=== PATIENT | male | born 1970 | race American Indian/Alaskan Native ===

== ENCOUNTER 2017-05-03 15:47 | Inpatient (IN) | payer OTHER ==
[2017-05-03 16:24] LABS: Basophils % (Auto) 0.1 % (0.0-1.8); Eosinophils # (Auto) 0.1 K/mm3 (0.0-0.4); Eosinophils % (Auto) 0.7 % (0.0-4.3); Hematocrit 44.2 % (35.5-45.6); Hemoglobin 14.5 gm/dl (11.8-15.2); Lymphocytes # (Auto) 1.3 K/mm3 (1.2-5.4); Lymphocytes % (Auto) 11.2 % (13.4-35.0); Mean Corpuscular HGB Conc 33 % (32-34); Mean Corpuscular Hemoglobin 29 pg (28-32); Mean Corpuscular Volume 89 fl (84-94); Monocytes # (Auto) 1.2 K/mm3 (0.0-0.8); Monocytes % (Auto) 10.5 % (0.0-7.3); Platelet Count 136 K/mm3 (140-440); Red Blood Count 4.96 M/mm3 (3.65-5.03)
[2017-05-03 16:39] LABS: BUN/Creatinine Ratio 28; Blood Urea Nitrogen 14 mg/dL (9-20); Calcium 8.8 mg/dL (8.4-10.2); Hemolysis Index 4
[2017-05-03] MEDS ORDERED: MORPHINE IV ONE (17:42)
[2017-05-03] MEDS ORDERED: ZOFRAN IV ONE (17:42)
--- NOTE | 2017-05-03 17:48 | Emergency Department Report ---
HPI - General Chief Complaint: Extremity Injury, Lower Time Seen by Provider: 05/03/17 17:33 - HPI HPI: Room 23 The patient is a 46-year-old male presenting with a chief complaint of right foot pain and swelling. The patient states yesterday he noticed swelling of the right. Patient states swelling and redness has increased. The patient states he went to urgent care facility today for evaluation and was sent here for cellulitis and concern for an "irregular" heart rate. Patient denies chest pain or shortness of breath. Patient denies any recent flights or long car trips. Of note the patient states in November 2016 he was diagnosed with cellulitis in the right huang. Patient admits to subjective fever yesterday. The patient gives his pain a score of 8-9/10 Location: Right foot Duration: 2 days Quality: Pain Severity: 8-9/10 Modifying factors: [see above] Context: [see above] Mode of transportation: [not driving] ED Past Medical Hx - Past Medical History Previous Medical History?: No - Surgical History Past Surgical History?: No - Family History Family history: no significant - Social History Smoking Status: Current Every Day Smoker (1/7 pack per day) Substance Use Type: Marijuana - Medications Home Medications: Home Medications Medication Instructions Recorded Confirmed Last Taken Type No Known Home Medications [No 05/03/17 05/03/17 Unknown History Reported Home Medications] ED Review of Systems ROS: Stated complaint: SENT BY URGENT CARE Other details as noted in HPI Constitutional: fever Musculoskeletal: myalgia Skin: lesions Physical Exam - Physical Exam Vital Signs: Vital Signs 05/03/17 16:00 Temperature 99.0 F Pulse Rate 107 H Respiratory 18 Rate Blood Pressure 137/86 O2 Sat by Pulse 97 Oximetry Physical Exam: GENERAL: The patient is well-developed well-nourished male lying on stretcher not appearing to be in acute distress. [] HEENT: Normocephalic. Atraumatic. Extraocular motions are intact. Patient has moist mucous membranes. NECK: Supple. Trachea midline CHEST/LUNGS: Clear to auscultation. There is no respiratory distress noted. HEART/CARDIOVASCULAR: Regular. There is no tachycardia. There is no gallop rub or murmur. ABDOMEN: Abdomen is soft, nontender. Patient has normal bowel sounds. There is no abdominal distention. SKIN: There is no rash. There is 1-2+ lower extremity pitting edema. There is no diaphoresis. There is marked erythema/cellulitis over the dorsum of the right foot and anterior and lateral right huang. There is increased warmth of the right lower extremity. There is cracked skin between the second and third digits of the right foot which appear to be due to portal of entry for cellulitis NEURO: The patient is awake, alert, and oriented. The patient is cooperative. The patient has normal speech MUSCULOSKELETAL: There is no calf tenderness. ED Course Vital Signs 05/03/17 16:00 Temperature 99.0 F Pulse Rate 107 H Respiratory 18 Rate Blood Pressure 137/86 O2 Sat by Pulse 97 Oximetry ED Medical Decision Making - Lab Data Result diagrams: 05/03/17 16:15 05/03/17 16:15 Laboratory Tests 05/03/17 05/03/17 16:15 16:15 WBC 11.8 H RBC 4.96 Hgb 14.5 Hct 44.2 MCV 89 MCH 29 MCHC 33 RDW 14.0 Plt Count 136 L Lymph % (Auto) 11.2 L [place] % (Auto) 10.5 H Eos % (Auto) 0.7 Baso % (Auto) 0.1 Lymph # 1.3 [place] # 1.2 H Eos # 0.1 Baso # 0.0 Seg Neutrophils % 77.5 H Seg Neutrophils # 9.1 H Sodium 138 Potassium 3.6 Chloride 98.2 Carbon Dioxide 29 Anion Gap 14 BUN 14 Creatinine 0.5 L Estimated GFR > 60 BUN/Creatinine Ratio 28 Glucose 134 H Calcium 8.8 - Radiology Data Radiology results: image reviewed (right foot x-ray) interpreted by me: Right foot x-ray-no foreign body, no fracture - Differential Diagnosis cellulitis Critical care attestation.: If time is entered above; I have spent that time in minutes in the direct care of this critically ill patient, excluding procedure time. ED Disposition Clinical Impression: Cellulitis of right foot Disposition: [id number] OP ADMIT IP TO THIS HOSP Is pt being admited?: Yes Does the pt Need Aspirin: No Condition: Fair Time of Disposition: 18:44 (hospitalist notified)
[2017-05-03] MEDS ORDERED: ZOSYN/NS 4.5GM/100ML 4.5 GM/100 ML VIAL IV SCH (18:30)
--- NOTE | 2017-05-03 18:33 | History and Physical Report ---
History of Present Illness Chief complaint: My foot hurts History of present illness: 46 YO Male with Nicotine Dependence presents to ED for evaluation. Pt states that he has experienced pain, redness and swelling in his right foot over the past 2 days with worsening symptoms over the past 12 hours. Pain is currently 8/ 10, localized to the right foot, nonradiating, Pt states that he went to urgent care facility today for evaluation and was found to have cellulitis and concern for an "irregular" heart rate. Pt seen and evaluated in ED and found to have cellulitis to the RLE. Patient denies fever, chills, CP, Palpitations, NVD, Syncope, prolonged travel/immobility, individual/family history of DVT/PE, shortness of breath, trauma, chest pain with deep breathing, or recent ill contacts. Past History Past Medical History: No medical history Past Surgical History: No surgical history Social history: single, smoking Family history: hypertension Medications and Allergies Allergies Allergy/AdvReac Type Severity Reaction Status Date / Time No Known Allergies Allergy Unverified 05/03/17 16:02 Home Medications Medication Instructions Recorded Confirmed Last Taken Type No Known Home Medications [No 05/03/17 05/03/17 Unknown History Reported Home Medications] Active Meds: Active Medications Vancomycin HCl (Vancomycin/0.45 Ns 1 Gm/250 Ml) 1 gm in 250 mls @ 167.007 mls/ hr IV ONCE REAGAN PRN Reason: Protocol Stop: 05/03/17 23:00 Piperacillin Sod/Tazobactam Sod (Zosyn/Ns 4.5gm/100ml) 4.5 gm in 100 mls @ 200 mls/hr IV ONCE REAGAN Stop: 05/03/17 23:00 Review of Systems Constitutional: no weight loss, no weight gain, no fever Ears, nose, mouth and throat: no ear pain, no ear discharge, no tinnitis, no decreased hearing, no nose pain, no nasal congestion Cardiovascular: no chest pain, no orthopnea, no palpitations, no rapid/ irregular heart beat, no edema, no syncope, no lightheadedness, no shortness of breath Respiratory: no cough, no cough with sputum, no excessive sputum, no hemoptysis , no shortness of breath, no dyspnea on exertion Gastrointestinal: no abdominal pain, no nausea, no vomiting, no diarrhea, no constipation, no change in bowel habits, no hematemesis Genitourinary Male: no hematuria, no flank pain, no discharge, no urinary frequency, no urinary hesitancy Rectal: no pain, no incontinence, no bleeding Musculoskeletal: other (right foot swelling, redness), no neck stiffness, no neck pain, no shooting arm pain, no arm numbness/tingling, no low back pain, no shooting leg pain, no leg numbness/tingling Integumentary: no rash, no pruritis, no redness, no sores, no wounds, no jaundice Neurological: no transient paralysis, no paralysis, no weakness, no parathesias , no numbness, no tingling, no seizures Psychiatric: no anxiety, no memory loss, no change in sleep habits, no sleep disturbances, no insomnia, no hypersomnia, no change in appetite Endocrine: no cold intolerance, no heat intolerance, no polyphagia, no excessive thirst, no polydipsia, no polyuria, no nocturia Hematologic/Lymphatic: no easy bruising, no easy bleeding, no lymphadenopathy, no lymphedema Allergic/Immunologic: no urticaria Exam - Constitutional Vitals: Temp Pulse Resp BP Pulse Ox 99.0 F 107 H 18 137/86 97 05/03/17 16:00 05/03/17 16:00 05/03/17 16:00 05/03/17 16:00 05/03/17 16:00 General appearance: Present: mild distress - EENT Eyes: Present: PERRL ENT: hearing intact, clear oral mucosa - Neck Neck: Present: supple, normal ROM - Respiratory Respiratory effort: normal Respiratory: bilateral: CTA - Cardiovascular Heart Sounds: Present: S1 & S2. Absent: rub, click - Extremities Extremities: pulses symmetrical, No edema Extremity abnormal: edema, erythema, tenderness Peripheral Pulses: within normal limits - Abdominal General gastrointestinal: Present: soft, non-tender, non-distended, normal bowel sounds Male genitourinary: Present: normal - Integumentary Integumentary: Present: clear, warm, dry - Musculoskeletal Musculoskeletal: gait normal, strength equal bilaterally - Psychiatric Psychiatric: appropriate mood/affect, intact judgment & insight - Neurologic Neurologic: CNII-XII intact, moves all extremities Results - Labs CBC & Chem 7: 05/03/17 16:15 05/03/17 16:15 Labs: Abnormal lab results 05/03/17 05/03/17 Range/Units 16:15 16:15 WBC 11.8 H (4.5-11.0) K/mm3 Plt Count 136 L (140-440) K/mm3 Lymph % (Auto) 11.2 L (13.4-35.0) % [place] % (Auto) 10.5 H (0.0-7.3) % [place] # 1.2 H (0.0-0.8) K/mm3 Seg Neutrophils % 77.5 H (40.0-70.0) % Seg Neutrophils # 9.1 H (1.8-7.7) K/mm3 Creatinine 0.5 L (0.8-1.5) mg/dL Glucose 134 H (75-100) mg/dL Assessment and Plan - Patient Problems (1) Cellulitis of right foot Current Visit: Yes Status: Acute Plan to address problem: IV abx, IVF, blood cultures, supportive care, pain control (2) Nicotine dependence Current Visit: Yes Status: Acute (3) SIRS (systemic inflammatory response syndrome) Current Visit: Yes Status: Acute Plan to address problem: IV abx, IVF resuscitation, supportive care. (4) Nicotine dependence Current Visit: Yes Status: Acute Qualifiers: Nicotine product type: cigarettes Substance use status: in withdrawal Qualified Code(s): F17.213 - Nicotine dependence, cigarettes, with withdrawal Plan to address problem: Pt refused to pick quit date, supportive care. (5) DVT prophylaxis Current Visit: Yes Status: Acute
[2017-05-03] MEDS ORDERED: VANCOMYCIN/0.45 NS 1 GM/250 ML 1 GM/250 ML BAG IV SCH ×2 (19:00→22:00)
--- NOTE | 2017-05-03 19:30 | XRay Report ---
FINAL REPORT PROCEDURE: Right foot. TECHNIQUE: Three portable views. HISTORY: Cellulitis. COMPARISON: No prior studies are available for comparison. FINDINGS: The bones appear intact without fracture or dislocation. There are no signs of osteomyelitis. The joint spaces appear satisfactory. The soft tissues are unremarkable. IMPRESSION: Normal study.
[2017-05-03] MEDS ORDERED: TYLENOL PO PRN (20:40)
[2017-05-03] MEDS ORDERED: DULCOLAX PR PRN (20:40)
[2017-05-03] MEDS ORDERED: PROVENTIL IH PRN (20:40)
[2017-05-03] MEDS ORDERED: MILK OF MAGNESIA PO PRN (20:40)
[2017-05-03] MEDS ORDERED: ZOFRAN IV PRN (20:40)
--- NOTE | 2017-05-03 20:44 | Cat Scan Report ---
FINAL REPORT EXAM: CT LOWER EXTREMITY RT W CON HISTORY: RLE Cellulitis TECHNIQUE: CT of the right lower leg with intravenous contrast PRIORS: None. FINDINGS: There is no evidence for cortical lucency or lytic bony process to suggest presence of acute osteomyelitis. No focal subcutaneous abscess collections are identified. There is subcutaneous edema posterior aspect of the lower leg. No evidence for soft tissue gas. IMPRESSION: Soft tissue edema could reflect cellulitis No focal abscess collection identified. No CT evidence for acute osteomyelitis.
[2017-05-03] MEDS ORDERED: VANCOMYCIN PHARMACY TO DOSE IV SCH (21:00)
[2017-05-03] MEDS ORDERED: NACL 0.45% 1000 ML 1,000 ML IV ONE (22:04)
[2017-05-03] MEDS: NACL 0.45% 1000 ML 1,000 ML IV SCH (22:15)
[2017-05-04] MEDS ORDERED: MORPHINE IV ONE (05:29)
[2017-05-04] MEDS: VANCOMYCIN 1,500 MG in NACL 0.9% 500 ML 500 ML IV SCH ×2 (10:35→21:32)
[2017-05-04] MEDS: PERCOCET 5/325 PO PRN (15:13)
[2017-05-04] MEDS: CLEOCIN PO SCH ×3 (15:14→21:32)
--- NOTE | 2017-05-04 20:15 | Progress Note ---
Assessment and Plan Assessment and plan: --Cellulitis right leg and foot; CT negative for osteomyelitis or abscess Continue Vanco, add clindamycin, elevate lower extremity, wound care --SIRS; IV antibiotics, cultures, IV fluids, supportive care --Ongoing tobacco use; smoking cessation, advised nicotine patch as needed --Morbid obesity; counseling done, advised patient reduction in medically stable --DVT prophylaxis of Lovenox Closely monitor the patient and adjust management as needed History Interval history: Patient seen and examined medical records reviewed No new events reported by the nursing staff Admitted with cellulitis. Foot CT scan negative for abscess of osteomyelitis Patient complains of mild pain Platelet signs reviewed Hospitalist Physical - Constitutional Vitals: Temp Pulse Resp BP Pulse Ox 99.0 F 80 19 128/75 93 05/04/17 16:47 05/04/17 16:47 05/04/17 16:47 05/04/17 16:47 05/04/17 16:47 General appearance: Present: no acute distress, well-nourished, obese - EENT Eyes: Present: PERRL, EOM intact - Neck Neck: Present: supple, normal ROM - Respiratory Respiratory effort: normal Respiratory: negative: rales, rhonchi, wheezing - Cardiovascular Rhythm: regular Heart Sounds: Present: S1 & S2 - Extremities Extremities: abnormal (cellulitis swelling and redness of the leg and foot,) Extremity abnormal: edema - Abdominal General gastrointestinal: soft, non-tender, non-distended, normal bowel sounds - Integumentary Integumentary: Present: clear, warm - Psychiatric Psychiatric: appropriate mood/affect, cooperative - Neurologic Neurologic: CNII-XII intact, moves all extremities Results - Labs CBC & Chem 7: 05/06/17 05:43 05/06/17 05:43 Labs: Laboratory Last Values WBC 11.8 K/mm3 (4.5-11.0) H 05/03/17 16:15 RBC 4.96 M/mm3 (3.65-5.03) 05/03/17 16:15 Hgb 14.5 gm/dl (11.8-15.2) 05/03/17 16:15 Hct 44.2 % (35.5-45.6) 05/03/17 16:15 MCV 89 fl (84-94) 05/03/17 16:15 MCH 29 pg (28-32) 05/03/17 16:15 MCHC 33 % (32-34) 05/03/17 16:15 RDW 14.0 % (13.2-15.2) 05/03/17 16:15 Plt Count 136 K/mm3 (140-440) L 05/03/17 16:15 Lymph % (Auto) 11.2 % (13.4-35.0) L 05/03/17 16:15 [place] % (Auto) 10.5 % (0.0-7.3) H 05/03/17 16:15 Eos % (Auto) 0.7 % (0.0-4.3) 05/03/17 16:15 Baso % (Auto) 0.1 % (0.0-1.8) 05/03/17 16:15 Lymph # 1.3 K/mm3 (1.2-5.4) 05/03/17 16:15 [place] # 1.2 K/mm3 (0.0-0.8) H 05/03/17 16:15 Eos # 0.1 K/mm3 (0.0-0.4) 05/03/17 16:15 Baso # 0.0 K/mm3 (0.0-0.1) 05/03/17 16:15 Seg Neutrophils % 77.5 % (40.0-70.0) H 05/03/17 16:15 Seg Neutrophils # 9.1 K/mm3 (1.8-7.7) H 05/03/17 16:15 Sodium 138 mmol/L (137-145) 05/03/17 16:15 Potassium 3.6 mmol/L (3.6-5.0) 05/03/17 16:15 Chloride 98.2 mmol/L (98-107) 05/03/17 16:15 Carbon Dioxide 29 mmol/L (22-30) 05/03/17 16:15 Anion Gap 14 mmol/L 05/03/17 16:15 BUN 14 mg/dL (9-20) 05/03/17 16:15 Creatinine 0.5 mg/dL (0.8-1.5) L 05/03/17 16:15 Estimated GFR > 60 ml/min 05/03/17 16:15 BUN/Creatinine Ratio 28 % 05/03/17 16:15 Glucose 134 mg/dL (75-100) H 05/03/17 16:15 Calcium 8.8 mg/dL (8.4-10.2) 05/03/17 16:15
[2017-05-05] MEDS: NACL 0.45% 1000 ML 1,000 ML IV SCH (04:17)
[2017-05-05] MEDS: CLEOCIN PO SCH ×4 (11:05→22:41)
[2017-05-05] MEDS ORDERED: ATIVAN IV NR (11:16)
[2017-05-05] MEDS ORDERED: XYLOCAINE 1% 20 mL INFILTRATI NR (11:20)
[2017-05-05] MEDS ORDERED: DILAUDID IV NR (11:30)
--- NOTE | 2017-05-05 11:37 | Consultation ---
History of Present Illness Consult date: 05/05/17 Reason for consult: other (foot infection) Requesting physician: MADALYN TAYLOR Chief complaint: right foot pain - History of present illness History of present illness: 46-year-old male was admitted from the emergency room with right foot pain that was found to have infection. He's been seen by the primary team as well as wound care. They are concerned that he may need an incision and drainage. Therefore, general surgery is consulted. Patient reports that on Monday began to have right foot pain. He tried to self treat but it continued to get worse. He may have had a fever, but did not measure it. Denies any other problems. He has had cellulitis in the right leg in the past, but does not know how it developed. Denies any recent trauma to the right foot or leg. He reports that the right leg is chronically bigger than the left. The left has always been smaller. He denies any pain in the right lower leg. The pain is isolated to the top of the right foot Past History Past Medical History: No medical history Past Surgical History: No surgical history Social history: single, smoking Family history: hypertension Medications and Allergies Allergies Allergy/AdvReac Type Severity Reaction Status Date / Time No Known Allergies Allergy Unverified 05/03/17 16:02 Home Medications Medication Instructions Recorded Confirmed Last Taken Type No Known Home Medications [No 05/03/17 05/03/17 Unknown History Reported Home Medications] Active Meds: Active Medications Acetaminophen (Tylenol) 650 mg PO Q4H PRN PRN Reason: Pain MILD(1-3)/Fever >100.5/CLAY Albuterol (Proventil) 2.5 mg IH Q4HRT PRN PRN Reason: Shortness Of Breath Bisacodyl (Dulcolax) 10 mg FL QDAY PRN PRN Reason: Constipation unrelieved by MOM Clindamycin HCl (Cleocin) 300 mg PO QID REAGAN Last Admin: 05/04/17 21:32 Dose: 300 mg Hydromorphone HCl (Dilaudid) 1 mg IV ONCE ONE Stop: 05/05/17 11:31 Sodium Chloride (Nacl 0.45% 1000 Ml) 1,000 mls @ 42 mls/hr IV DIRECT REAGAN Last Admin: 05/05/17 04:17 Dose: 42 mls/hr Vancomycin HCl 1,500 mg/ (Sodium Chloride) 515 mls @ 333.333 mls/hr IV Q12HR REAGAN Last Admin: 05/04/17 21:32 Dose: 333.333 mls/hr Lidocaine (Xylocaine 1% 20 Ml) 20 ml INFILTRATI ONCE ONE Stop: 05/05/17 11:21 Lorazepam (Ativan) 2 mg IV ONCE ONE Stop: 05/05/17 11:17 Magnesium Hydroxide (Milk Of Magnesia) 30 ml PO Q4H PRN PRN Reason: Constipation Ondansetron HCl (Zofran) 4 mg IV Q8H PRN PRN Reason: N/V unrelieved by Reglan Oxycodone/Acetaminophen (Percocet 5/325) 1 tab PO Q6H PRN PRN Reason: Pain, Moderate (4-6) Last Admin: 05/04/17 15:13 Dose: 1 tab Vancomycin HCl (Vancomycin Pharmacy To Dose) 1 each IV PKCONSULT REAGAN PRN Reason: Protocol Review of Systems - Constitutional fever, no chills, no sweats, no night sweats, no weakness, no poor appetite - Cardiovascular no chest pain - Respiratory no shortness of breath - Gastrointestinal no abdominal pain - Genitourinary no dysuria - Muskuloskeletal no leg numbness/tingling (no pain in the lower right leg.Pain at the right ankle. No pain in the plantar surface of the right foot.) right: foot pain, foot swelling - Integumentary redness Exam Vital Signs Temp Pulse Resp BP Pulse Ox 99.0 F 107 H 18 137/86 97 05/03/17 16:00 05/03/17 16:00 05/03/17 16:00 05/03/17 16:00 05/03/17 16:00 - General physical appearance Positive: well developed, well nourished, no distress - Eyes Positive: normal occular movement - Respiratory Positive: normal expansion, normal respiratory effort - Extremities Extremity abnormal: erythema (on the dorsum of the right foot extending onto the dorsum of the 2nd digit, no significant tenderness was noted on the 2nd digit.), tenderness (only a database of 2nd right digit where the skin is discolored. The digit itself is nontender. The other digits are nontender.), other (purulent material is seen draining between the 2nd and 3rd digits. About 1/2 cm area of skin at the base of the right 2nd digit appears ischemic and fluctuant) - Neurologic Neurologic: alert and oriented to time, place and person, motor strength and sensation are grossly intact - Psychiatric Psychiatric: appropriate mood/affect, intact judgment & insight Results - Labs 05/03/17 16:15 05/03/17 16:15 - Imaging Additional studies: reviewed plain x-rays of foot and CT of RLE Assessment and Plan - Patient Problems (1) Cellulitis of right foot Onset Date: ~05/02/17 Current Visit: Yes Status: Acute Plan to address problem: Pt stable. I think he would benefit from an incision drainage of the right foot. Procedure, risks, benefits, alternatives discussed with patient. I gave him the option of either doing it at the bedside versus the operating room. He would like to try doing it at the bedside so that we get this taken care of immediately. I agree with that. I will obtain the supplies and then get consent at the time of the procedure. time=45min
--- NOTE | 2017-05-05 12:53 | Progress Note ---
Assessment and Plan Assessment and plan: --Cellulitis right leg and foot; CT negative for osteomyelitis or abscess Continue Vanco, add clindamycin, elevate lower extremity, wound care Surgery planning I&D today --SIRS; IV antibiotics, cultures, IV fluids, supportive care --Ongoing tobacco use; smoking cessation, advised nicotine patch as needed --Morbid obesity; counseling done, advised patient reduction in medically stable --DVT prophylaxis of Lovenox Discharge in 1-2 days if stable History Interval history: Patient seen and examined medical records reviewed Patient feels slightly better, swelling significantly improved Wound cares following Surgical recommendations noted and appreciated Patient is alert awake oriented 3 not in acute distress Vitals reviewed Hospitalist Physical - Constitutional Vitals: Temp Pulse Resp BP Pulse Ox 99.1 F 90 18 138/91 96 05/05/17 08:19 05/05/17 08:19 05/05/17 08:19 05/05/17 08:19 05/05/17 08:19 General appearance: Present: no acute distress, well-nourished, obese - EENT Eyes: Present: PERRL, EOM intact - Neck Neck: Present: supple, normal ROM - Respiratory Respiratory effort: normal Respiratory: negative: rales, rhonchi, wheezing - Cardiovascular Rhythm: regular Heart Sounds: Present: S1 & S2 - Extremities Extremities: no ischemia, No edema Peripheral Pulses: within normal limits - Abdominal General gastrointestinal: soft, non-tender, non-distended, normal bowel sounds - Integumentary Integumentary: Present: clear, warm - Psychiatric Psychiatric: appropriate mood/affect, cooperative - Neurologic Neurologic: CNII-XII intact, moves all extremities Results - Labs CBC & Chem 7: 05/06/17 05:43 05/06/17 05:43 Labs: Laboratory Last Values WBC 11.8 K/mm3 (4.5-11.0) H 05/03/17 16:15 RBC 4.96 M/mm3 (3.65-5.03) 05/03/17 16:15 Hgb 14.5 gm/dl (11.8-15.2) 05/03/17 16:15 Hct 44.2 % (35.5-45.6) 05/03/17 16:15 MCV 89 fl (84-94) 05/03/17 16:15 MCH 29 pg (28-32) 05/03/17 16:15 MCHC 33 % (32-34) 05/03/17 16:15 RDW 14.0 % (13.2-15.2) 05/03/17 16:15 Plt Count 136 K/mm3 (140-440) L 05/03/17 16:15 Lymph % (Auto) 11.2 % (13.4-35.0) L 05/03/17 16:15 [place] % (Auto) 10.5 % (0.0-7.3) H 05/03/17 16:15 Eos % (Auto) 0.7 % (0.0-4.3) 05/03/17 16:15 Baso % (Auto) 0.1 % (0.0-1.8) 05/03/17 16:15 Lymph # 1.3 K/mm3 (1.2-5.4) 05/03/17 16:15 [place] # 1.2 K/mm3 (0.0-0.8) H 05/03/17 16:15 Eos # 0.1 K/mm3 (0.0-0.4) 05/03/17 16:15 Baso # 0.0 K/mm3 (0.0-0.1) 05/03/17 16:15 Seg Neutrophils % 77.5 % (40.0-70.0) H 05/03/17 16:15 Seg Neutrophils # 9.1 K/mm3 (1.8-7.7) H 05/03/17 16:15 Sodium 138 mmol/L (137-145) 05/03/17 16:15 Potassium 3.6 mmol/L (3.6-5.0) 05/03/17 16:15 Chloride 98.2 mmol/L (98-107) 05/03/17 16:15 Carbon Dioxide 29 mmol/L (22-30) 05/03/17 16:15 Anion Gap 14 mmol/L 05/03/17 16:15 BUN 14 mg/dL (9-20) 05/03/17 16:15 Creatinine 0.5 mg/dL (0.8-1.5) L 05/03/17 16:15 Estimated GFR > 60 ml/min 05/03/17 16:15 BUN/Creatinine Ratio 28 % 05/03/17 16:15 Glucose 134 mg/dL (75-100) H 05/03/17 16:15 Calcium 8.8 mg/dL (8.4-10.2) 05/03/17 16:15
[2017-05-05] MEDS: VANCOMYCIN 1,500 MG in NACL 0.9% 500 ML 500 ML IV SCH ×2 (13:00→22:41)
[2017-05-05] MEDS ORDERED: NACL 0.9% IR ONE ×2 (13:03→14:00)
--- NOTE | 2017-05-05 16:03 | Procedure Note ---
Date of procedure: 05/05/17 Pre-op diagnosis: Right foot abscess Post-op diagnosis: same Procedure: I&D of right foot abscess Consent obtained prior to case. Procedure, risks, benefits, alternatives discussed. Sterile prep done. 1% lidocaine plain was used to anesthetize the skin. Patient received 2mg of ativan IV and then 1 mg of dilaudid IV The non-viable skin adjacent to the site of drainage and at the base of the 2nd digit was excised. Drainage site was clearly identified. Wound was probed. It extended towards the dorsum of the foot and not toward the plantar surface. The cavity seemed to stop about 2cm away which correlated with another ischemic area of skin. I enlarged the opening to about 1cm. There was free flow of purulent material. Cultures were obtained. the wound was probed thoroughly. Will about 100cc of NS, the cavity was thoroughly flushed out. there was no further purulent material coming out. Pt tolerated the procedure well. No complications. Pt was mildly sedated and able to interact without difficulty at the end of the case. Anesthesia: local Surgeon: SHELBY AVALOS Estimated blood loss: minimal IV fluids: 0 Pathology: list (wound cultures) Specimen disposition: to lab Condition: stable Disposition: floor
--- NOTE | 2017-05-05 16:44 | Vascular Lab Report ---
Right Lower Extremity Venous Duplex Study: Reason for Exam: Pain of the right lower extremity. Comments on the Right: All veins visualized are freely compressible without evidence of internal echogenicity. Flow is spontaneous and phasic throughout. No evidence of acute or chronic thrombus is seen in any of the vessels visualized. Comments on the Left: A limited duplex study was done of the proximal veins of the left lower extremity. All veins visualized are freely compressible without evidence of internal echogenicity. Flow is spontaneous and phasic throughout. No evidence of acute or chronic thrombus is seen in any of the vessels visualized. Impression: No evidence of acute or chronic deep venous thrombosis in the right lower extremity.
[2017-05-06 06:32] LABS: BUN/Creatinine Ratio 18; Blood Urea Nitrogen 9 mg/dL (9-20); Calcium 8.7 mg/dL (8.4-10.2); Hemolysis Index 7
[2017-05-06 06:53] LABS: Basophils % (Auto) 0.3 % (0.0-1.8); Eosinophils # (Auto) 0.2 K/mm3 (0.0-0.4); Eosinophils % (Auto) 2.1 % (0.0-4.3); Hematocrit 44.5 % (35.5-45.6); Hemoglobin 15.1 gm/dl (11.8-15.2); Lymphocytes % (Auto) 13.2 % (13.4-35.0); Mean Corpuscular HGB Conc 34 % (32-34); Mean Corpuscular Hemoglobin 30 pg (28-32); Mean Corpuscular Volume 88 fl (84-94); Monocytes # (Auto) 0.9 K/mm3 (0.0-0.8); Platelet Count 170 K/mm3 (140-440); Red Blood Count 5.05 M/mm3 (3.65-5.03); Red Cell Distribution Width 13.5 % (13.2-15.2)
[2017-05-06] MEDS: CLEOCIN PO SCH (10:06)
[2017-05-06] MEDS: VANCOMYCIN 1,500 MG in NACL 0.9% 500 ML 500 ML IV SCH (10:13)
--- NOTE | 2017-05-06 11:45 | Progress Note ---
Assessment and Plan 46 yo M with cellulitis and abscess of right foot, s/p bedside incision and drainage 1. continue IV vanco, dc clinda and start zosyn based on current wound cultures 2. wound cultures - gram negative rods and staph aureus 3. daily dressing/packing changes by RN - I discussed this with patient's RN today 4. PRN PO pain control 5. OOB/ambulate, patient advised to weight bear on Left foot 6. DVT ppx 7. daily wound checks Subjective Date of service: 05/06/17 Narrative: Pt seen and examined. No complaints. No f/c. States pain is improved as well as redness of right leg. Objective Vital Signs - 12hr 05/06/17 07:51 Temperature 98.4 F Pulse Rate 81 Respiratory 18 Rate Blood Pressure 124/79 O2 Sat by Pulse 98 Oximetry - General physical appearance Narrative Exam: Gen: AAOx3. NAD RLE: cellulitis of right lower leg. Dressing of foot clean and dry. Packing in place in between 2nd and third toes, wound base with slough, mild erythema over dorsum of foot. Serosang drainage on inner portion of dressing, no pus. 1+ pitting edema. No pain on palpation. - Labs 05/06/17 05:43 05/06/17 05:43 Diabetes panel 05/06/17 Range/Units 05:43 Sodium 141 (137-145) mmol/L Potassium 4.4 D (3.6-5.0) mmol/L Chloride 101.6 (98-107) mmol/L Carbon Dioxide 27 (22-30) mmol/L BUN 9 (9-20) mg/dL Creatinine 0.5 L (0.8-1.5) mg/dL Glucose 101 H (75-100) mg/dL Calcium 8.7 (8.4-10.2) mg/dL Calcium panel 05/06/17 Range/Units 05:43 Calcium 8.7 (8.4-10.2) mg/dL Pituitary panel 05/06/17 Range/Units 05:43 Sodium 141 (137-145) mmol/L Potassium 4.4 D (3.6-5.0) mmol/L Chloride 101.6 (98-107) mmol/L Carbon Dioxide 27 (22-30) mmol/L BUN 9 (9-20) mg/dL Creatinine 0.5 L (0.8-1.5) mg/dL Glucose 101 H (75-100) mg/dL Calcium 8.7 (8.4-10.2) mg/dL Adrenal panel 05/06/17 Range/Units 05:43 Sodium 141 (137-145) mmol/L Potassium 4.4 D (3.6-5.0) mmol/L Chloride 101.6 (98-107) mmol/L Carbon Dioxide 27 (22-30) mmol/L BUN 9 (9-20) mg/dL Creatinine 0.5 L (0.8-1.5) mg/dL Glucose 101 H (75-100) mg/dL Calcium 8.7 (8.4-10.2) mg/dL
[2017-05-06] MEDS: NACL 0.45% 1000 ML 1,000 ML IV SCH (16:06)
[2017-05-06] MEDS: ZOSYN/NS 4.5GM/100ML 4.5 GM/100 ML VIAL IV SCH (16:06)
[2017-05-06] MEDS: PERCOCET 5/325 PO PRN (18:25)
[2017-05-06] MEDS: VANCOMYCIN 2,000 MG in NACL 0.9% 500 ML 500 ML IV SCH (18:26)
--- NOTE | 2017-05-06 19:25 | Progress Note ---
Assessment and Plan Assessment and plan: 46-year-old male patient admitted with right leg and foot swelling and tenderness CT negative for osteomyelitis or abscess, underwent I&D --Cellulitis right leg and foot; s/p incision and drainage, continue wound care, await the limb On Vanco and Clinda, wound cultures positive for gram-negative and staph aureus Follow sensitivities, ID consult if needed --SIRS; IV antibiotics, cultures, IV fluids, supportive care --Ongoing tobacco use; smoking cessation, advised nicotine patch as needed --Morbid obesity; counseling done, advised patient reduction in medically stable --DVT prophylaxis of Lovenox Physical therapy as tolerated Possible discharge in 1-2 days if stable Plan of care is reviewed with the patient and his nurse History Interval history: Patient seen and examined medical records reviewed Underwent incision and drainage yesterday Receiving wound care, feels better no new complaints Alert awake Oriented 3 Vital signs reviewed Not in acute distress Hospitalist Physical - Constitutional Vitals: Temp Pulse Resp BP Pulse Ox 99.2 F 77 18 142/91 96 05/06/17 16:13 05/06/17 16:13 05/06/17 16:13 05/06/17 16:13 05/06/17 16:13 General appearance: Present: no acute distress, well-nourished, obese - EENT Eyes: Present: PERRL, EOM intact - Neck Neck: Present: supple, normal ROM - Respiratory Respiratory effort: normal Respiratory: negative: rales, rhonchi, wheezing - Cardiovascular Rhythm: regular Heart Sounds: Present: S1 & S2 - Extremities Extremities: no ischemia, abnormal (right foot in dressing) Extremity abnormal: edema - Abdominal General gastrointestinal: soft, non-tender, non-distended, normal bowel sounds - Integumentary Integumentary: Present: clear, warm - Psychiatric Psychiatric: appropriate mood/affect, cooperative - Neurologic Neurologic: CNII-XII intact, moves all extremities Results - Labs CBC & Chem 7: 05/06/17 05:43 05/06/17 05:43 Labs: Laboratory Last Values WBC 7.6 K/mm3 (4.5-11.0) 05/06/17 05:43 RBC 5.05 M/mm3 (3.65-5.03) H 05/06/17 05:43 Hgb 15.1 gm/dl (11.8-15.2) 05/06/17 05:43 Hct 44.5 % (35.5-45.6) 05/06/17 05:43 MCV 88 fl (84-94) 05/06/17 05:43 MCH 30 pg (28-32) 05/06/17 05:43 MCHC 34 % (32-34) 05/06/17 05:43 RDW 13.5 % (13.2-15.2) 05/06/17 05:43 Plt Count 170 K/mm3 (140-440) 05/06/17 05:43 Lymph % (Auto) 13.2 % (13.4-35.0) L 05/06/17 05:43 [place] % (Auto) 12.0 % (0.0-7.3) H 05/06/17 05:43 Eos % (Auto) 2.1 % (0.0-4.3) 05/06/17 05:43 Baso % (Auto) 0.3 % (0.0-1.8) 05/06/17 05:43 Lymph # 1.0 K/mm3 (1.2-5.4) L 05/06/17 05:43 [place] # 0.9 K/mm3 (0.0-0.8) H 05/06/17 05:43 Eos # 0.2 K/mm3 (0.0-0.4) 05/06/17 05:43 Baso # 0.0 K/mm3 (0.0-0.1) 05/06/17 05:43 Seg Neutrophils % 72.4 % (40.0-70.0) H 05/06/17 05:43 Seg Neutrophils # 5.5 K/mm3 (1.8-7.7) 05/06/17 05:43 Sodium 141 mmol/L (137-145) 05/06/17 05:43 Potassium 4.4 mmol/L (3.6-5.0) D 05/06/17 05:43 Chloride 101.6 mmol/L (98-107) 05/06/17 05:43 Carbon Dioxide 27 mmol/L (22-30) 05/06/17 05:43 Anion Gap 17 mmol/L 05/06/17 05:43 BUN 9 mg/dL (9-20) 05/06/17 05:43 Creatinine 0.5 mg/dL (0.8-1.5) L 05/06/17 05:43 Estimated GFR > 60 ml/min 05/06/17 05:43 BUN/Creatinine Ratio 18 % 05/06/17 05:43 Glucose 101 mg/dL (75-100) H 05/06/17 05:43 Calcium 8.7 mg/dL (8.4-10.2) 05/06/17 05:43 Vancomycin Trough 8.0 ug/mL (5.0-20.0) 05/06/17 08:51
[2017-05-07] MEDS: ZOSYN/NS 4.5GM/100ML 4.5 GM/100 ML VIAL IV SCH ×3 (00:31→15:29)
[2017-05-07] MEDS: VANCOMYCIN 2,000 MG in NACL 0.9% 500 ML 500 ML IV SCH ×3 (02:57→18:21)
--- NOTE | 2017-05-07 08:12 | Progress Note ---
Assessment and Plan Assessment and plan: 46-year-old male patient admitted with right leg and foot swelling and tenderness CT negative for osteomyelitis or abscess, underwent I&D --Cellulitis right leg and foot; s/p incision and drainage, continue wound care, On Vanco zosyn. Clinda was discontinued, wound cultures positive for gram- negative and staph aureus Follow sensitivities, ID consulted --SIRS; IV antibiotics, cultures, IV fluids, supportive care --Ongoing tobacco use; smoking cessation, advised nicotine patch as needed --Morbid obesity; counseling done, advised patient reduction in medically stable --DVT prophylaxis of Lovenox Physical therapy as tolerated Possible discharge in 1-2 days if stable Plan of care is reviewed with the patient and his nurse History Interval history: Patient seen and examined in no acute distress. Hospitalist Physical - Physical exam Narrative exam: General appearance: Present: no acute distress, well-nourished, obese - EENT Eyes: Present: PERRL, EOM intact - Neck Neck: Present: supple, normal ROM - Respiratory Respiratory effort: normal Respiratory: negative: rales, rhonchi, wheezing - Cardiovascular Rhythm: regular Heart Sounds: Present: S1 & S2 - Extremities Extremities: no ischemia, abnormal (right foot in dressing) Extremity abnormal: edema - Abdominal General gastrointestinal: soft, non-tender, non-distended, normal bowel sounds - Integumentary Integumentary: Present: clear, warm - Psychiatric Psychiatric: appropriate mood/affect, cooperative - Neurologic Neurologic: CNII-XII intact, moves all extremities - Constitutional Vitals: Temp Pulse Resp BP Pulse Ox 98.5 F 62 20 132/77 100 05/07/17 07:41 05/07/17 07:41 05/07/17 07:41 05/07/17 07:41 05/07/17 07:41 General appearance: Present: no acute distress, well-nourished, obese Results - Labs CBC & Chem 7: 05/06/17 05:43 05/06/17 05:43 Labs: Laboratory Last Values WBC 7.6 K/mm3 (4.5-11.0) 05/06/17 05:43 RBC 5.05 M/mm3 (3.65-5.03) H 05/06/17 05:43 Hgb 15.1 gm/dl (11.8-15.2) 05/06/17 05:43 Hct 44.5 % (35.5-45.6) 05/06/17 05:43 MCV 88 fl (84-94) 05/06/17 05:43 MCH 30 pg (28-32) 05/06/17 05:43 MCHC 34 % (32-34) 05/06/17 05:43 RDW 13.5 % (13.2-15.2) 05/06/17 05:43 Plt Count 170 K/mm3 (140-440) 05/06/17 05:43 Lymph % (Auto) 13.2 % (13.4-35.0) L 05/06/17 05:43 [place] % (Auto) 12.0 % (0.0-7.3) H 05/06/17 05:43 Eos % (Auto) 2.1 % (0.0-4.3) 05/06/17 05:43 Baso % (Auto) 0.3 % (0.0-1.8) 05/06/17 05:43 Lymph # 1.0 K/mm3 (1.2-5.4) L 05/06/17 05:43 [place] # 0.9 K/mm3 (0.0-0.8) H 05/06/17 05:43 Eos # 0.2 K/mm3 (0.0-0.4) 05/06/17 05:43 Baso # 0.0 K/mm3 (0.0-0.1) 05/06/17 05:43 Seg Neutrophils % 72.4 % (40.0-70.0) H 05/06/17 05:43 Seg Neutrophils # 5.5 K/mm3 (1.8-7.7) 05/06/17 05:43 Sodium 141 mmol/L (137-145) 05/06/17 05:43 Potassium 4.4 mmol/L (3.6-5.0) D 05/06/17 05:43 Chloride 101.6 mmol/L (98-107) 05/06/17 05:43 Carbon Dioxide 27 mmol/L (22-30) 05/06/17 05:43 Anion Gap 17 mmol/L 05/06/17 05:43 BUN 9 mg/dL (9-20) 05/06/17 05:43 Creatinine 0.5 mg/dL (0.8-1.5) L 05/06/17 05:43 Estimated GFR > 60 ml/min 05/06/17 05:43 BUN/Creatinine Ratio 18 % 05/06/17 05:43 Glucose 101 mg/dL (75-100) H 05/06/17 05:43 Calcium 8.7 mg/dL (8.4-10.2) 05/06/17 05:43 Vancomycin Trough 8.0 ug/mL (5.0-20.0) 05/06/17 08:51
[2017-05-07] MEDS: PERCOCET 5/325 PO PRN ×2 (10:10→21:52)
--- NOTE | 2017-05-07 13:32 | Progress Note ---
Assessment and Plan 46 yo M with cellulitis and abscess of right foot, s/p bedside incision and drainage 1. continue IV vanco, zosyn, transition to ORAL abx 2. wound cultures - Proteus and MRSA - both sensitive to Bactrim PO 3. daily dressing/packing changes by RN 4. PRN PO pain control 5. OOB/ambulate, patient advised to weight bear on Left foot 6. DVT ppx Subjective Date of service: 05/07/17 Narrative: Pt seen and examined. Feels well. Pain is controlled. No overnight events. Afebrile. Objective Vital Signs - 12hr 05/07/17 07:41 Temperature 98.5 F Pulse Rate 62 Respiratory 20 Rate Blood Pressure 132/77 O2 Sat by Pulse 100 Oximetry - General physical appearance Narrative Exam: Gen: AAOx3. NAD RLE: cellulitis of right lower leg improving. Dressing of foot clean and dry. Packing in place in between 2nd and 3rd toes, wound base with a small amount of slough, erythema over dorsum of foot has almost completely resolved. Serosang drainage on inner portion of dressing, no pus. Edema improved. No pain on palpation. - Labs 05/06/17 05:43 05/06/17 05:43
--- NOTE | 2017-05-07 15:44 | Consultation ---
History of Present Illness - Reason for Consult Consult date: 05/07/17 MRSA right foot wound Requesting physician: WILBERT DUNN - History of Present Illness 46 years old male with history of tobacco abuse; admitted on 05/03/17 due to 2 day history of right forefoot worsening edema, erythema, and tenderness. Pain became 8/10, localized to the right foot, nonradiating. Pt states that he went to urgent care facility for evaluation and was found to have cellulitis and concern for an "irregular" heart rate. In the ED, initial temperature 90.9, heart rate 107, respiration 18, O2 sat 97% , blood pressure 137/86. Initial white count 11.8. Hemoglobin 14.5. Platelets 136. Creatinine 0.5. CT of the leg show soft tissue edema, no abscess, no osteomyelitis. Venous US showed no DVT. Microbiology: Blood cultures: 05/03 ngtd Wound cultures: 05/05 Proteus and MRSA Stool cultures: Other: Current Antimicrobials: Zosyn Vancomycin Previous Antimicrobials: Past History Past Medical History: No medical history Past Surgical History: No surgical history Social history: single, smoking Family history: hypertension Medications and Allergies Allergies Allergy/AdvReac Type Severity Reaction Status Date / Time No Known Allergies Allergy Unverified 05/03/17 16:02 Home Medications Medication Instructions Recorded Confirmed Last Taken Type No Known Home Medications [No 05/03/17 05/03/17 Unknown History Reported Home Medications] Active Meds: Active Medications Acetaminophen (Tylenol) 650 mg PO Q4H PRN PRN Reason: Pain MILD(1-3)/Fever >100.5/CLAY Albuterol (Proventil) 2.5 mg IH Q4HRT PRN PRN Reason: Shortness Of Breath Bisacodyl (Dulcolax) 10 mg MA QDAY PRN PRN Reason: Constipation unrelieved by MOM Sodium Chloride (Nacl 0.45% 1000 Ml) 1,000 mls @ 42 mls/hr IV DIRECT REAGAN Last Admin: 05/06/17 16:06 Dose: 42 mls/hr Piperacillin Sod/Tazobactam Sod (Zosyn/Ns 4.5gm/100ml) 4.5 gm in 100 mls @ 200 mls/hr IV Q8HR REAGAN PRN Reason: Protocol Last Admin: 05/07/17 15:29 Dose: 200 mls/hr Vancomycin HCl 2,000 mg/ (Sodium Chloride) 520 mls @ 250 mls/hr IV Q8H REAGAN Magnesium Hydroxide (Milk Of Magnesia) 30 ml PO Q4H PRN PRN Reason: Constipation Ondansetron HCl (Zofran) 4 mg IV Q8H PRN PRN Reason: N/V unrelieved by Reglan Oxycodone/Acetaminophen (Percocet 5/325) 1 tab PO Q6H PRN PRN Reason: Pain, Moderate (4-6) Last Admin: 05/07/17 10:10 Dose: 1 tab Vancomycin HCl (Vancomycin Pharmacy To Dose) 1 each IV PKCONSULT REAGAN PRN Reason: Protocol Review of Systems All systems: negative (as per HPI rest neg) Physical Examination - Physical Exam Narrative exam: General appearance: Alert in NAD, conversant Eyes: anicteric sclerae, moist conjunctivae; no lid-lag; PERRLA HENT: Atraumatic; oropharynx clear Neck: Trachea midline; supple, no thyromegaly or lymphadenopathy Lungs: CTA, with normal respiratory effort and no intercostal retractions CV: RRR, no murmurs Abdomen: Soft, non-tender; no masses or hepatosplenomegaly Extremities: right forefoot marked edema, erythema and a wound no purulence Skin: Normal temperature, turgor and texture; no rash, ulcers or subcutaneous nodules Psych: Appropriate affect, alert and oriented to person, place and time. Neuro: alert and oriented x 3. Moving all extermities Lines: No CVL / PICC - Constitutional Vitals: Vital Signs Temp Pulse Resp BP Pulse Ox 98.5 F 62 20 132/77 100 05/07/17 07:41 05/07/17 07:41 05/07/17 07:41 05/07/17 07:41 05/07/17 07:41 Temperature -Last 24 Hours Temperature 98.5 F Temperature 97.7 F Temperature 99.2 F Results - Labs CBC & Chem 7: 05/06/17 05:43 05/06/17 05:43 Assessment and Plan Assessment: 1) Sepsis: Present on admission, manifested by tachycardia, mild leukocytosis. Etiology most likely right foot abscess. 2) Right forefoot abscess: s/p I+D cultures + MRSA and Proteus 3) Bilateral athlete feet (tinae pedis) Plan: -continue vancomycin -start unasyn -stop zosyn -add fluconazole po and topical antifungal -upon discharge will do bactrim DS 2 tab q12h total 14 days and clotrimazole apply to hitesh feet (between toes) BID total 14 days -keep feet dry Thank you for your consultation, will follow up with you. Vidhi Petit MD Infectious Diseases Specialist [facility] ([facility] M [phone] O [phone]
[2017-05-07] MEDS: LOTRISONE TP SCH ×2 (16:00→22:00)
[2017-05-07] MEDS ORDERED: UNASYN/NS 3 GM/100 ML 3 GM/100 ML BAG IV SCH ×2 (18:00)
[2017-05-07] MEDS: DIFLUCAN PO SCH (18:22)
[2017-05-07] MEDS: UNASYN/NS 3 GM/100 ML 3 GM/100 ML BAG IV SCH (21:52)
[2017-05-08] MEDS: VANCOMYCIN 2,000 MG in NACL 0.9% 500 ML 500 ML IV SCH ×2 (00:59→13:41)
[2017-05-08] MEDS: UNASYN/NS 3 GM/100 ML 3 GM/100 ML BAG IV SCH ×2 (05:10→09:23)
[2017-05-08] MEDS: DIFLUCAN PO SCH (09:22)
[2017-05-08] MEDS: LOTRISONE TP SCH (09:24)
--- NOTE | 2017-05-08 10:46 | Discharge Summary ---
Providers - Providers Date of Admission: 05/03/17 20:40 Attending physician: WILBERT DUNN MD 05/04/17 12:43 Consult to Wound/ET Nurse [CONS] Routine Reason For Exam: wound eval 05/05/17 10:24 Consult to Physician [CONS] Routine Consulting Provider: MÓNICA RICHARDSON Reason For Exam: Wound Debridement Place consult to:: Dr. Richardson Notified:: Yes Phone number called:: [phone] Was contact made?: Yes If yes, spoke with:: dr richardson Time called:: 10:00 05/07/17 08:11 Consult to Physician [CONS] Routine Consulting Provider: LETI MATTHEWS Reason For Exam: right foot abscess Place consult to:: dr. matthews Notified:: lft ms Phone number called:: Was contact made?: No Time called:: 10:04 05/07/17 13:39 Consult to Physician [CONS] Routine Consulting Provider: ANTOINETTE MITCHELL Reason For Exam: MRSA in right foot wound Place consult to:: [facility] Notified:: Dr Haque Phone number called:: [phone] Was contact made?: Yes If yes, spoke with:: Dr haque Time called:: 13:51 Comment:: dr haque said she will see [facility] Primary care physician: DESTATICIZER FEEDER Hospitalization Reason for admission: right forefoot abscess Condition: Stable Hospital course: 46-year-old male patient admitted with right leg and foot swelling and tenderness for 2 days with worsening edema, erythema, and tenderness. Pain became . Pt states that he went to urgent care facility for evaluation and was found to have cellulitis and concern for an "irregular" heart rate. CT negative for osteomyelitis or abscess, underwent I&D with cultures growing MRSA and Proteus. Patient was seen by infectious disease also complains a similar surgery but no discharge today. He is to follow up with surgeon outpatient and also will get home health for one care visit to indicate terminal with dressing.. Discharge diagnosis: Sepsis secondary to right lower extremity abscess Right forefoot abscess with cellulitis Tobacco use disorder Bilateral athlete's feet Morbid obesity Disposition: [id number]/TX-06 HOME [facility]ER [facility] Time spent for discharge: 35 MINS Core Measure Documentation - Palliative Care Palliative Care/ Comfort Measures: Not Applicable - Core Measures Any of the following diagnoses?: none - VTE Discharge Requirements Deep Vein Thrombosis/Pulmonary Embolism Present on Admission: No Exam - Physical Exam Narrative exam: General appearance: Present: no acute distress, well-nourished, obese - EENT Eyes: Present: PERRL, EOM intact - Neck Neck: Present: supple, normal ROM - Respiratory Respiratory effort: normal Respiratory: negative: rales, rhonchi, wheezing - Cardiovascular Rhythm: regular Heart Sounds: Present: S1 & S2 - Extremities Extremities: no ischemia, abnormal (right foot in dressing) Extremity abnormal: edema - Abdominal General gastrointestinal: soft, non-tender, non-distended, normal bowel sounds - Integumentary Integumentary: Present: clear, warm - Psychiatric Psychiatric: appropriate mood/affect, cooperative - Neurologic Neurologic: CNII-XII intact, moves all extremities - Constitutional Vitals: Temp Pulse Resp BP Pulse Ox 98.3 F 59 L 18 134/76 99 05/08/17 07:32 05/08/17 07:32 05/08/17 07:32 05/08/17 07:32 05/08/17 07:32 Plan Activity: advance as tolerated, fall precautions Diet: regular Wound: per your surgeon's advice, per wound nurse instructions Special Instructions: smoking cessation Follow up with: PRIMARY MD MAURA [Primary Care Provider] - 7 Days SHELBY AVALOS MD [Staff Physician] - 7 Days Prescriptions: Clotrimazole/Betamethasone [Lotrisone] 1 applic TP BID 14 Days tube Fluconazole [Diflucan TAB] 200 mg PO QDAY #14 tablet oxyCODONE /ACETAMINOPHEN [Percocet 5/325 mg] 1 tab PO Q6H PRN #14 tablet PRN Reason: Pain, Moderate (4-6) Sulfamethoxazole/Trimethoprim [Bactrim DS TAB] 1 each PO BID 14 Days tablet
--- NOTE | 2017-05-08 11:03 | Progress Note ---
Assessment and Plan - Patient Problems (1) Cellulitis of right foot Onset Date: ~05/02/17 Current Visit: Yes Status: Acute Plan to address problem: Pt stable. s/p I&D of right foot. Patient is doing better. I discussed the need for packing with wound care. It is okay from my standpoint patient is discharged home with wound care instructions. He may follow up with me in the office in about one week. time=10min Subjective Patient Reports: Positive: no new complaints, feels better, pain is less. Negative: nausea, vomiting Objective Vital Signs - 12hr 05/07/17 05/08/17 23:32 07:32 Temperature 98.7 F 98.3 F Pulse Rate 82 59 L Respiratory 20 18 Rate Blood Pressure 131/79 134/76 O2 Sat by Pulse 93 99 Oximetry - General physical appearance well developed, well nourished, no distress, no pain - Eyes normal occular movement - Respiratory normal expansion, normal respiratory effort - Integumentary other (erythema and tenderness are definitely less on the dorsum of the right foot. Mobility at the ankle is better. The packing tape was found to be wrapped around the toes instead of packed into the wound. There are some purulent material sitting on top. The swelling of the dorsum of the foot and the 2nd digit appear to be improved.) - Labs 05/06/17 05:43 05/06/17 05:43
[2017-05-08] MEDS: PERCOCET 5/325 PO PRN (11:07)
--- NOTE | 2017-05-08 11:12 | Progress Note ---
<RAI VICTORIA - Last Filed: 05/08/17 16:20> Assessment and Plan Assessment: 1) Sepsis: Better. Etiology most likely right foot abscess. 2) Right forefoot abscess: s/p I+D cultures + MRSA and Proteus 3) Bilateral athlete feet (tinae pedis) Plan: -continue vancomycin -continue day 2 -continue fluconazole po and topical antifungal day 2 -upon discharge will do bactrim DS 2 tab q12h total 14 days and clotrimazole apply to hitesh feet (between toes) BID total 14 days -keep feet dry We will sign off Thank you for your consultation, will follow up with you. Vidhi Petit MD Infectious Diseases Specialist [facility] M [phone] O [phone] Subjective Date of service: 05/08/17 Interval history: I want to go home, no fever Microbiology: Blood cultures: 05/03 ngtd Wound cultures: 05/05 Proteus and MRSA Stool cultures: Other: Current Antimicrobials: Zosyn Vancomycin Previous Antimicrobials: Objective - Exam Narrative Exam: General appearance: Alert in NAD, conversant Eyes: anicteric sclerae, moist conjunctivae; no lid-lag; PERRLA HENT: Atraumatic; oropharynx clear, no thrush Neck: Trachea midline; supple, no thyromegaly or lymphadenopathy Lungs: CTAB CV: RRR, no murmurs Abdomen: Soft, non-tender; no masses or hepatosplenomegaly Extremities: right dressing for forefoot marked edema, erythema and a wound no purulence Skin: Normal temperature, turgor and texture; no rash, ulcers or subcutaneous nodules Psych: Appropriate affect, calm and cooperative Neuro: alert and oriented x 3. Moving all extermities Lines: No CVL / PICC - Constitutional Vitals: Vital Signs Temp Pulse Resp BP Pulse Ox 98.3 F 59 L 18 134/76 99 05/08/17 07:32 05/08/17 07:32 05/08/17 07:32 05/08/17 07:32 05/08/17 07:32 Temperature -Last 24 Hours Temperature 98.3 F Temperature 98.7 F Temperature 98.4 F - Labs CBC & Chem 7: 05/06/17 05:43 05/06/17 05:43 <VIDHI MITCHELL - Last Filed: 05/08/17 21:39> Objective - Constitutional Vitals: Vital Signs Temp Pulse Resp BP Pulse Ox 98.8 F 90 18 125/86 98 05/08/17 15:24 05/08/17 15:24 05/08/17 15:24 05/08/17 15:24 05/08/17 15:24 Temperature -Last 24 Hours Temperature 98.8 F Temperature 98.3 F Temperature 98.7 F - Labs CBC & Chem 7: 05/06/17 05:43 05/06/17 05:43
[2017-05-08 16:08] VITALS: BP 125/86
== END 2017-05-08 17:08 | disposition home health service (06) | DRG 872 ==
LOC: ED 15:47 → 3A 20:40
PROVIDERS: ADMIT Internal Medicine; ATTEND Internal Medicine
PROC: 0H9MXZZ Drainage of Right Foot Skin, External Approach (ICD-10-PCS; principal; 2017-05-05)
DX: A41.9 Sepsis, unspecified organism (principal); L03.115 Cellulitis of right lower limb; L02.611 Cutaneous abscess of right foot; F17.210 Nicotine dependence, cigarettes, uncomplicated; F12.90 Cannabis use, unspecified, uncomplicated; B35.3 Tinea pedis; E66.01 Morbid (severe) obesity due to excess calories; Z68.32 Body mass index [BMI] 32.0-32.9, adult; Z71.89 Other specified counseling; Z82.49 Family history of ischemic heart disease and other diseases of the circulatory system; Z71.6 Tobacco abuse counseling
CPT/HCPCS: 36415; 80048; 80202; 85025; 87040; 87076; 87116; 87186; 93005; 93010; 96374; 96375; J0295; J1170; J2060; J2270; J2405; J2543; J3370; J7040; Q9967